=== PATIENT | male | born 1950 | race Caucasian/White ===

== ENCOUNTER → 2018-12-11 11:44 | Outpatient (CLI) | payer MEDICARE | END | disposition home or self-care (01) | LOC: D.HCCARDIO 11:44 | PROVIDERS: ATTEND Internal Medicine Cardiovascular Disease | DX: I35.0 Nonrheumatic aortic (valve) stenosis (principal) ==

== ENCOUNTER 2019-02-07 08:26 | Inpatient (IN) | payer MEDICARE ==
[~2019-02-07] VITALS: Ht 167.6 cm; Wt 76.8 kg
--- NOTE | ~2019-02-07 | HEMODYNAMI ---
PATIENT:IDA LIZARRAGA MEDICAL RECORD: [id number] : 54 [id number] ADMISSION DATE: 02/10/19 Generatedon:02/10/201914:48 Patient name: IDA LIZARRAGA Patient #: [id number] SSN: : 1950 Date of study: 02/10/2019 Page: Of Hemodynamic Procedure Report Patient Data Patient Demographics Procedure consent was obtained First Name: IDA Gender: Male Last Name: ZIA : 1950 [facility] Initial: L Age: 68 year(s) Patient #: [id number] Race: Unknown SSN: [id number] Additional ID: [id number] Contact details Address: [address] [place] [address] State: [place] City: [place] Zip code: [address] Past Medical History Allergies: No known allergies Admission Admission Data Admission Date: 02/10/2019 Admission Time: 8:03 Admit Source: Other Insurance Payor: Private Room #: D.2129 health insurance [facility] #: [id number] Height (in.): 66 BSA: 1.84 (m2) Height (cm.): 167.64 BMI: 26.69 (kg/m2) Weight (lbs.): 165.35 Weight (kg.): 75 Lab Results Lab Result Date: 02/10/2019 Lab Result Time: 13:28 Biochemistry Name Units Result Min Max BUN mg/dl 28 --(----)-* 7 18 Creatinine mg/dl 0.9 --(-*--)-- 0.6 1.3 CBC Name Units Result Min Max Hematocrit % 47.9 --(-*--)-- 42 54 Hemoglobin g/dl 16.4 --(--*-)-- 13.5 17.5 Procedure Procedure Types Cath Procedure Diagnostic Procedure C LH w/Coronaries Sedation Charges Moderate Sedation up to 15 minutes Procedure Description Procedure Date Procedure Date: 02/10/2019 Procedure Start Time: 14:28 Procedure End Time: 14:46 Procedure Staff Name Function Malcom Graham MD Performing Physician Lul Khan RT Monitor Betito Rodriguez RT Scrub Delaney Cadet RT Scrub Shaun Joyner RN Nurse Indication Shortness of breath Procedure Data Cath Procedure Fluoroscopy Diagnostic fluoroscopy Total fluoroscopy Time: 2.7 time: 2.7 min min Diagnostic fluoroscopy Total fluoroscopy dose: 463 dose: 463 mGy mGy Contrast Material Contrast Material Type Amount (ml) Isovue 300 84 Entry Location Entry Primary Successful Side Size Upsize Upsize Entry Closure Succes sful Closure Location (Fr) 1 (Fr) 2 (Fr) Remarks Device Remarks Femoral Right 5 Fr Exoseal artery Estimated blood loss: 5 ml Diagnostic catheters Device Type Used For End Catheter Placement MULTIPACK JL 4.0 5Fr Procedure catheter MULTIPACK 3DRC 5Fr Procedure catheter MULTIPACK Pigtail 5 Fr Procedure catheter Procedure Complications No complications Procedure Medications Medication Administration Route Dosage 0.9% NaCl I.V. 100 ml/hr Oxygen etCO2 Nasal cannula 2 l/min Heparin Flush Bag added to field 2 bags (1000units/500ml NS) Lidocaine 2% added to field 20 Versed I.V. 1 mg Fentanyl I.V. 50 mcg Versed I.V. 1 mg Fentanyl I.V. 50 mcg Hemodynamics Rest BSA: 1.84 (m2) HGB: 16.4 (g/dl) O2 Consumption: Estimated: 206.67 (ml/min) O2 Co nsumption indexed: Estimated:112.32 (ml/min/m) Heart Rate: 59 (bpm) Snapshots Pre Cath Intra NCS Post Cath Vital Signs Time Heart Resp SPO2 etCO2 NIBP (mmHg) Rhythm Pain Sedation Rate (ipm) (%) (mmHg) Status Level (bpm) 14:20:07 58 12 99 26.9 148/72(113) NSR 0 (11) 10(A) , No pain 14:24:27 60 12 98 29.9 135/70(110) NSR 0 (11) 10(A) , No pain 14:28:47 56 11 98 30.6 135/66(105) NSR 0 (11) 10(A) , No pain 14:33:09 57 14 98 30.6 135/68(107) NSR 0 (11) 9(A) , No pain 14:37:27 56 15 98 32.9 142/76(115) NSR 0 (11) 9(A) , No pain 14:41:47 66 11 98 32.9 153/78(132) NSR 0 (11) 9(A) , No pain 14:46:09 60 9 98 32.9 135/63(107) NSR 0 (11) 9(A) , No pain Medications Time Medication Route Dose Verified Delivered Reason Notes Eff ectiveness by by 14:20:46 0.9% NaCl I.V. 100 Shaun Shaun Per ml/hr Ar Joyner physician RN RN 14:20:56 Oxygen etCO2 2 Shaun Shaun for low 02 Nasal l/min Lorigan Lorigan sats cannula RN RN 14:21:06 Heparin Flush added 2 Shaun Shaun used for Bag to bags Lorigan Lorigan procedure (1000units/500ml field RN RN NS) 14:21:16 Lidocaine 2% added 20ml Shaun Shaun for local to vial Lorigan Lorigan anesthetic field RN RN 14:29:32 Versed I.V. 1 mg Shaun Shaun for Lorigan Lorigan sedation RN RN 14:29:40 Fentanyl I.V. 50 Shaun Shaun for mcg Lorigan Lorigan sedation RN RN 14:31:58 Versed I.V. 1 mg Shaun Shaun for Lorigan Lorigan sedation RN RN 14:32:04 Fentanyl I.V. 50 Hsaun Shaun for mcg Lorigan Lorigan sedation RN foreign language instructor Log Time Note 13:51:43 Informed consent obtained and on chart 13:53:46 Admit Source: Other 13:53:54 Insurance Payor : Private health insurance 13:54:11 Patient Height : 66 inches 13:54:17 Patient Weight : 165.35 lbs 13:56:31 Lab Result : Hemoglobin 16.4 g/dl 13:56:31 Lab Result : Hematocrit 47.9 % 13:56:31 Lab Result : BUN 28 mg/dl 13:56:31 Lab Result : Creatinine 0.9 mg/dl 13:56:55 Indication : Shortness of breath 13:56:57 Diagnostic Cath Status : Elective 13:57:32 ACC Patient presents with No angina; no symptoms CCS Anginal Class 0--No symptoms, no angina. 13:58:29 ACCPatient has been prescribed/administered the following anti-anginal medication within the last 2 weeks: Long-Acting Nitrates, PILY-Inhibitor 13:58:33 Procedure Status Elective Heart Cath (OP). 13:58:36 Shaun Joyner RN sent for patient. Start room use. 13:58:37 Time tracking: Regular hours (M-F 7:00 - 5:00) 13:58:40 Plan of Care:Hemodynamics will remain stable., Cardiac rhythm will remain stable., Comfort level will be maintained., Respiratory function will remain adequate., Patient/ family verbilizes understanding of procedure., Procedure tolerated without complication., Recovers from procedure without complications.. 14:10:16 Patient received from Pre/Post Procedure Room to CCL 1 Alert and oriented. Tansferred to table in Supine position. 14:10:19 Warm blankets applied, and natalia hugger turned on for patient comfort. 14:10:19 Correct patient and procedure confirmed by team. 14:10:20 ECG and BP/O2 sat monitors applied to patient. 14:10:21 Pre-procedure instructions explained to patient. 14:10:21 Pre-op teaching completed and patient verbalized understanding. 14:11:09 Family in waiting room. 14:11:23 Patient NPO since Breakfast. 14:11:39 Patient allergic to No known allergies 14:11:41 Is the patient allergic to Iodine/contrast media? No. 14:11:42 Is patient on blood thinner?No 14:11:57 H&P Date Dictated: 02/10/2019 Within 30 days and on chart.. 14:18:50 Vital chart was started 14:18:51 Baseline sample Acquired. 14:18:54 Rhythm: sinus rhythm 14:19:05 Full Disclosure recording started 14:19:09 Patient diabetic? No. 14:19:12 Previous problem with sedation/anesthesia? No ? 14:19:14 Snore? Yes 14:19:15 Sleep apnea? No 14:19:16 Deviated septum? No 14:19:16 Opens mouth fully? Yes 14:19:17 Sticks out tongue? Yes 14:19:18 Airway obstruction? No ? 14:19:25 Dentures? No ? 14:19:43 Pre procedure: right dorsailis pedis pulse 2+ Normal; easily identifiable; not easily obliterated 14:19:45 Patient pain scale 0/10 ?. 14:19:51 IV patent on arrival in left forearm with 0.9% NaCl at [facility]. 14:19:53 Lab results completed and on chart. 14:19:55 Right groin area was prepped with chlora-prep and draped in sterile fashion 14:20:00 Alarms reviewed by R. N. 14:20:00 Sharps counted by scrub and verified by R.N. 14:20:22 Use device set Femoral Dx 14:20:24 ACIST Syringe (98654) opened to sterile field. 14:20:24 Bag Decanter (2002S) opened to sterile field. 14:20:26 Medline Cath Pack ([id number]) opened to sterile field. 14:20:27 ACIST Hand Control (14969) opened to sterile field. 14:20:28 ACIST Manifold (78931) opened to sterile field. 14:20:28 Tegaderm 4 x 4 (1626W) opened to sterile field. 14:20:29 EMERALD Guide Wire (502-270) opened to sterile field. 14:20:30 SHEATH 5FR Fitzwilliam (EGD003) opened to sterile field. 14:20:31 DIAGNOSTIC Multipack 5Fr catheter set (NC7728) opened to sterile field. 14:20:46 0.9% NaCl 100 ml/hr I.V. was administered by Shaun Joyner RN; Per physician; 14:20:56 Oxygen 2 l/min etCO2 Nasal cannula was administered by Shaun Joyner RN; for low 02 sats; 14:21:06 Heparin Flush Bag (1000units/500ml NS) 2 bags added to field was administered by Shaun Joyner RN; used for procedure; 14:21:16 Lidocaine 2% 20ml vial added to field was administered by Shaun Joyner RN; for local anesthetic; 14:22:09 Physician arrived 14:22:10 --------ALL STOP TIME OUT------ 14:22:10 Final Timeout: patient, procedure, and site verified with staff and physician. All members of the team are in agreement. 14:22:12 Right groin site verified by team. 14:22:16 Fire Safety Assessment: A--An alcohol-based skin anteseptic being used preoperatively., C--Open oxygen or nitrous oxide is being used., D--An ESU, laser, or fiber-optic light is being used. 14:22:19 Physical assessment completed. ASA score P 3 - A patient with severe systemic disease as per Malcom Graham MD. 14:23:04 1) 90+ Normal kidney functon but urine findings or structural abnormalities or genetic trait point to kidney disease. 14:23:08 Maximum allowable contrast dose (3.7 X eGFR X 0.75)250 ml. 14:23:11 Sedation plan: IV Moderate Sedation Medication:Versed, Fentanyl 14:27:53 Procedure started. 14:28:01 Local anesthetic to right femoral artery with Lidocaine 2% by Malcom Graham MD.INITIAL ACCESS ONLY 14:29:32 Versed 1 mg I.V. was administered by Shaun Joyner RN; for sedation; 14:29:40 Fentanyl 50 mcg I.V. was administered by Shaun Joyner RN; for sedation; 14:30:07 Zero performed for pressure channel P1 14:31:47 A 5 Fr sheath was inserted into the Right Femoral artery 14:31:58 Versed 1 mg I.V. was administered by Shaun Joyner RN; for sedation; 14:32:04 Fentanyl 50 mcg I.V. was administered by Shaun Joyner RN; for sedation; 14:33:30 A MULTIPACK JL 4.0 5Fr catheter was advanced over the wire and used for Procedure. 14:33:33 LCA angiography performed. 14:36:21 Catheter exchanged over wire. 14:36:25 A MULTIPACK 3DRC 5Fr catheter was advanced over the wire and used for Procedure. 14:36:33 RCA angiography performed. 14:38:56 Catheter exchanged over wire. 14:39:00 A MULTIPACK Pigtail 5 Fr catheter was advanced over the wire and used for Procedure. 14:39:50 ACCDominant side:Left 14:39:53 Aortic Root visualized 14:40:22 Catheter removed. 14:40:24 EXOSEAL 5Fr (EX500) opened to sterile field. 14:40:33 Sheath removed intact; hemostasis achieved with Exoseal to the Right Femoral artery. 14:40:34 Procedure ended.(Physican Out) 14:41:13 Fluoroscopy time 02.70 minutes. 14:41:42 Fluoroscopy dose: 463 mGy 14:41:42 Flurop Dose total: 463 14:43:50 Dose Area Product 79126 mGy/cm. 14:43:55 Contrast amount:Isovue 300 84ml. 14:44:37 Maximum allowable dose exceeded? No. 14:44:38 Sharps counted by scrub and verified by R.N. 14:44:41 Insertion/operative site no bleeding no hematoma. 14:44:53 Post right femoral artery:stable, soft, clean and dry 14:44:56 Post-op/insertion site Right Femoral artery dressed using a 4 x 4 and Tegaderm. 14:44:58 Post Procedure Pulses reassessed and unchanged 14:45:00 Post-procedure physical assessment completed. ASA score P 3 - A patient with severe systemic disease as per Malcom Graham MD. 14:45:09 Post procedure rhythm: unchanged. 14:45:36 Estimated blood loss: 5 ml 14:45:38 Post procedure instruction explained to patient.Patient verbalizes understanding. 14:45:38 Patient needs reinforcement of post procedure teaching. 14:46:21 Procedure type changed to Cath procedure, Diagnostic procedure, LHC, LHC w/Coronaries, Sedation Charges, Moderate Sedation up to 15 minutes 14:46:39 Procedure and supply charges have been captured, reviewed, submitted and are correct. 14:46:43 Procedure Complication : No complications 14:46:44 Vital chart was stopped 14:46:45 See physician's report for complete and final results. 14:46:47 Report given to PCU. 14:46:50 Patient transfered to PCU with Stretcher. 14:46:53 Procedure ended. 14:46:53 Full Disclosure recording stopped 14:46:57 End room use (Document Last) Device Usage Item Name Manufacture Quantity Catalog Hospital Part Current Minimal L ot# / Number Charge Number Stock Stock Serial# Code ACIST Acist 1 44357 819704 800612 010681 20 Syringe Medical (24301) Systems Inc Bag Microtek 1 840746 62125 923047 5 Decanter Medical Inc. () Medline Medline 1 [id number] 350029 89839 839567 5 Cath Pack ([id number]) ACIST Hand Acist 1 51940 649624 607109 589668 5 Control Medical (95190) Systems Inc ACIST Acist 1 28093 133000 676735 989808 5 Manifold Medical (48211) Systems Inc Tegaderm 4 3M 1 1626W 760825 984072 500767 5 x 4 (1626W) EMERALD Cardinal 1 371-470 282305 390567 407999 5 Guide Wire Health (502-479) SHEATH 5FR Terumo 1 CWY335 054372 322055 556385 5 Fitzwilliam (NCM411) DIAGNOSTIC Cardinal 1 NM4562 367991 23995 294151 30 Multipack Health 5Fr catheter set (JL0981) MULTIPACK Cardinal 1 577323 5 JL 4.0 5Fr Health catheter MULTIPACK Cardinal 1 614619 5 3DRC 5Fr Health catheter MULTIPACK Cardinal 1 824191 5 Pigtail 5 Health Fr catheter EXOSEAL 5Fr Cardinal 1 EX500 795369 512125 556175 10 (EX500) Health Signature Audit [place] Stage Time Signature Unsigned Intra-Procedure 02/10/2019 Lul Khan 2:48:02 PM RT(R) Signatures Performing Physician : Signature : Malcom Graham MD Date : Time : Monitor : Lul Khan RT Signature : Date : Time : Nurse : Shaun Joyner Signature : RN Date : Time : [facility] [address] [place], [place] [address]
[2019-02-10 08:30] VITALS: BP 163/66
[2019-02-10 09:09] LABS: BASOPHILS 0.4 % (0-2); EOSINOPHILS 4.8 % (0-7); HEMATOCRIT 47.9 % (42.0-54.0); HEMOGLOBIN 16.4 g/dL (13.5-17.5); IMMATURE GRANULOCYTES 0.6 % (0-5); LYMPHOCYTES 23.6 % (15-50); MCH 30.4 pg (26.0-34.0); MCHC 34.2 g/dL (31.0-37.0); MCV 88.9 fL (80.0-100.0); MEAN PLATELET VOLUME 10.2 fL (7.4-10.4); MONOCYTES 10.3 % (2-11); NEUTROPHILS 60.3 % (40-80); PLATELET COUNT 221 10x3/uL (130-400); RBC 5.39 10x6/uL (4.20-6.10); RDW 14.5 % (11.5-14.5); WBC 13.5 10x3/uL (4.8-10.8)
[2019-02-10 09:29] LABS: ALBUMIN 3.9 g/dL (3.4-5.0); ALKALINE PHOSPHATASE 73 U/L (46-116); ALT (SGPT) 18 U/L (10-68); BILIRUBIN - TOTAL 0.38 mg/dL (0.2-1.3); CALC OSMOLALITY 286 mosm/kg (275-300); CALCIUM 8.7 mg/dL (8.5-10.1); CARBON DIOXIDE 27.5 mmol/L (21.0-32.0); CHLORIDE - SERUM 106 mmol/L (98-107); CHOLESTEROL, TOTAL 187 mg/dL (0-200); CREATININE - SERUM 0.9 mg/dL (0.6-1.3); GLUCOSE 93 mg/dL (74-106); PHOSPHOROUS 3.2 mg/dL (2.5-4.9); POTASSIUM - SERUM 4.5 mmol/L (3.5-5.1); PROTEIN - SERUM 7.4 g/dL (6.4-8.2); SODIUM 141 mmol/L (136-145); T4 THYROXIN - FREE 0.87 ng/dL (0.76-1.46); THYROID STIMULATING HORMONE 2.95 uIU/mL (0.36-3.74); UREA NITROGEN 28 mg/dL (7-18); URIC ACID 6.6 mg/dL (2.6-7.2); eGFR NON AFRICAN AMERICAN 90 mL/min (90-120)
--- NOTE | 2019-02-10 09:30 | NUR ---
NEW ADMIT TO ROOM. PATIENT IS PLEASANT AND ORIENTED X 4. ACCOMPANIED BY SPOUSE. PATIENT APPEARS IN NO ACUTE DISTRESS. ADMISSION HISTORY, ASSESSMENT, EKG COMPLETED. IV 20 G TO LT WRIST SL WITH ONE ATTEMPT. PATIENT IS STABLE AND VSS. PATIENT TO HAVE LIGHT BREAKFAST AND HEART CATH THIS AFTERNOON. WILL CONTINUE WITH PLAN OF CARE.
[2019-02-10] MEDS ORDERED: LISINOPRIL40 MG PO (09:56)
[2019-02-10] MEDS ORDERED: ISOSORBIDE MONO30 M1 PO (09:56)
[2019-02-10] MEDS ORDERED: LOVASTATIN20 MG PO (09:57)
[2019-02-10 10:03] LABS: APTT 29.6 SECONDS (22.8-39.4)
[2019-02-10 10:10] LABS: INR 1.01 (0.85-1.17); PROTIME 13.2 SECONDS (11.6-15.0)
[2019-02-10 10:28] VITALS: BP 163/66; BMI 26.7
--- NOTE | 2019-02-10 12:17 | NUR ---
DR THOMPSON IN ROOM. PATIENT IS STABLE AND VSS. PATIENT REMAINS NPO AWAITNG HEART CATH. WILL CONTINUE TO MONITOR. SR UP X 2 BED IN LOW POSITION AND CALL LIGHT IN REACH.
[2019-02-10 12:32] VITALS: BP 143/52
--- NOTE | 2019-02-10 14:10 | NUR ---
PATIENT IS STABLE AND VSS. PATIENT PREOP PER PHONE CALL FROM SHORT FILLER BUNCH MACHINE OPERATOR TEAM. PATIENT TO SHORT FILLER BUNCH MACHINE OPERATOR VIA BED AND SHORT FILLER BUNCH MACHINE OPERATOR TEAM.
--- NOTE | 2019-02-10 15:15 | NUR ---
PATIENT RETURNED TO ROOM VIA CLINIC MANAGER TEAM AND HOSPITAL BED. PATIENT HAS EYES CLOSED AND BREATHING EVENLY. DRSG TO RT GROIN GROIN C/D/I . NO SIGNS OF BBLEEDING , BRUISING OR HEMATOMA NOTED. PATIENT IS STABLE AND VSS. PEDAL PULSES PALPABLE. VS SET UP FOR EVERY 15 MINUTES. WILL CONTINUE TO MONITOR. SR UP X 2 BED IN LOW POSITION AND CALL LIGHT IN REACH.
--- NOTE | 2019-02-10 15:30 | NUR ---
PATIENT IS STABLE AND VSS. RT GROIN DRSG C/D/I. NO HEMATOMA. PEDAL PULSES PALPABLE.
[2019-02-10 15:57] LABS: APPEARANCE CLEAR (CLEAR); BILIRUBIN NEGATIVE (NEGATIVE); COLOR YELLOW (YELLOW); GLUCOSE NEGATIVE (NEGATIVE); KETONE NEGATIVE (NEGATIVE); NITRITE NEGATIVE (NEGATIVE); PROTEIN NEGATIVE (NEGATIVE); UROBILINOGEN NORMAL (NORMAL)
--- NOTE | 2019-02-10 16:15 | NUR ---
PATIENT CONTINUES TO LAY FLAT WITH RT LEG STRAIGHT. PATIENT IS STABLE AND VSS. RT GROIN DRSG C/D/I NO HEMATOMA, BRUISNG OR BLEEDING NOTED. WILL CONTINUE TO MONITOR.
[2019-02-10 16:26] VITALS: BP 160/58
--- NOTE | 2019-02-10 17:18 | NUR ---
PATIENT LAYING DOWN AND EATING SUPPER. CAUTIONED PATIENT TO EAT SLOWLY, CHEW WELL AND EAT SMALL BITES. RT GROIN DRSG C/D/I. PATIENT IS STABLE AND VSS . WILL CONTINUE TO MONITOR. SR UP X 2 BED IN LOW POSITION AND CALL LIGHT IN REACH.
--- NOTE | 2019-02-10 18:00 | NUR ---
DR VANEGAS IN ROOM. RT GROIN DRSGT C/D/I. NO HEMATOMA, BRUISING OR BLEEDING NOTED. PATIENT IS STABLE AND VSS. WILL CONTINUE TO PHELPS HEALTHITOR.
--- NOTE | 2019-02-10 19:40 | NUR ---
REPORT CALLED TO CVICU, SPOKE WITH HIRAM. INFORMED RT AND MT THAT PT WILL BE TRANSFERRED.
--- NOTE | 2019-02-10 20:00 | NUR ---
68YO MALE RECEIVED TO ROOM CV03 VIA W/C; TRANSFERRED FROM 2128. PATIENT IS ALERT AND ORIENTED, COMMUNICATES NEEDS WELL. PATIENT TRANSFERRED TO BED WITH ASSIST AND WAS OFF BALANCE. FAMILY AT BEDSIDE AND ASSESSMENT COMPLETE.
[2019-02-10 20:08] VITALS: BP 144/59
--- NOTE | 2019-02-10 20:08 | NUR ---
PT ARRIVED TO CVICU VIA WHEELCHAIR WITH B2B SALES PROFESSIONAL AND FAMILY, AAOx4, ASSISTED PT TO BED, ICU MONITORS CONNECTED, UNIT AND ROOM ORRIENTATION COMPLETED, PT DENIES NEEDS AT THIS TIME VSS, SHIFT ASSESSMENT COMPLETED SEE FLOW SHEET, WILL CONTINUE TO MONITOR
--- NOTE | 2019-02-10 21:30 | NUR ---
CALL LIGHT ACTIVATED, PT C/O NAUSEATED AND STATED HE FEELS LIKE HE IS NEEDING TO VOMIT, BIPAP REMOVED IMEDIATLY, PT PLACED ON HIGH FLOW NC @7L/MIN, SPO2% DECREASED ON NC TO 89%, PLACED NRB @15L/MIN SPO2% IMPROVED, ZOFRAN GIVEN SEE MAR, NO VOMIT NOTED AT THIS TIME, RN AT BEDSIDE, CONTINUE TO MONITOR
[2019-02-10 23:00] VITALS: BP 123/57
[2019-02-11] VITALS (42 sets, daily range): BP systolic 95–207; BP diastolic 44–96; Ht 167.6 cm; Wt 76.8 kg
--- NOTE | 2019-02-11 05:15 | NUR ---
PATIENT SHAVED PER ORDER FROM ANTERIOR SURFACE FLANK TO FLANK.
--- NOTE | 2019-02-11 06:24 | NUR ---
PT TRANSPORTED TO [facility] X2RN AND
--- NOTE | 2019-02-11 06:46 | NUR ---
CALLED CVICU, RECEIVED ORDERS FOR PRE-OP
--- NOTE | 2019-02-11 07:14 | NUR ---
REPORT RECEIVED FROM OFF GOING NURSE. PATIENT IN THE OR.
[2019-02-11 11:59] LABS: INR 1.53 (0.85-1.17); PROTIME 17.8 SECONDS (11.6-15.0)
--- NOTE | 2019-02-11 12:30 | NUR ---
PT ARRIVED TO ROOM VIA BED FROM O.R. PLACED ON BEDSIDE MONITORING. VENTILATOR. MIDLINE INCISION. CHEST TUBE X2, TPM WIRES X2. ALMAZAN. RIGHT LEG HARVEST. RIJ SWAN. 8.0 ETT.
--- NOTE | 2019-02-11 14:30 | NUR ---
DR VANEGAS HAS BEEN BY. ASKED HOW PT TOLERATED AFTER STARTING DIPRIVAN. LET HIM KNOW PT RESPONDED TO NITRO/CLEVIPREX AND DIPRIVAN WELL. HAD NOT GIVEN METOPROLOL. ASKED TO HOLD OFF GIVING FOR NOW, MAY NOT NEED.
[2019-02-11 15:43] LABS: INR 1.24 (0.85-1.17)
--- NOTE | 2019-02-11 16:14 | NUR ---
PT SEDATION OFF. OPENS EYES, WILL NOT KEEP OPEN. AGITATED, PULLING AT RESTRAINTS. TRIES TO COME UP OUT OF BED. FAMILY TALKING TO HIM HELPS.
--- NOTE | 2019-02-11 17:04 | NUR ---
PT EXTUBATED AT 1657. PLACED ON 4L NC. COOPERATIVE AND CALM.
--- NOTE | 2019-02-11 19:07 | NUR ---
REPORT RECEIVED, SHIFT ASSESSMENT COMPLETED PER FLOW SHEET. RT IJ CVL PATENT, DRESSING C/D/I. SUBSTERNAL CT X2 TO 20 CM SUCTION, NO AIR LEAK. CVP AND ARPITA LEVELED AND ZEROED WITH GOOD WAVEFORM. PULLING 500-750 ON IS, COUGH NON-PRODUCTIVE. SEE FLOW SHEET FOR COMPLETE ASSESSMENT. WILL CONTINUE TO MONITOR.
--- NOTE | 2019-02-11 21:22 | NUR ---
SCHEDULED MEDS GIVEN, SEE EMAR FOR DETAILS. WATER PROVIDED, TOLERATED WELL. FAMILY AT BEDSIDE, UPDATE GIVEN. WILL CONTINUE TO MONITOR.
--- NOTE | 2019-02-11 23:00 | NUR ---
REASSESSMENT COMPLETED PER FLOW SHEET, SEE FOR DETAILS. NO ACUTE DISTRESS NOTED. WATER PROVIDED PER PATIENT'S REQUEST. DENIES OTHER NEEDS. WILL CONTINUE TO MONITOR.
[2019-02-12] VITALS (47 sets, daily range): BP systolic 115–158; BP diastolic 25–77
--- NOTE | 2019-02-12 01:00 | NUR ---
RESTING, DENIES NEEDS, WILL CONTINUE TO MONITOR.
--- NOTE | 2019-02-12 03:00 | NUR ---
REASSESSMENT COMPLETED PER FLOW SHEET, SEE FOR DETAILS. NO ACUTE CHANGES NOTED. WATER PROVIDED, DENIES OTHER NEEDS. WILL CONTINUE TO MONITOR.
--- NOTE | 2019-02-12 05:00 | NUR ---
COMPLETE BED BATH GIVEN. COMPLETE BED LINEN CHANGE PROVIDED. RT LEG COBAN DRESSING REMOVED, X4 INCISION SITES NOTED, SHADY INTACT, NO DRAINAGE, DRESSING CHANGED PER DOCTOR'S ORDERS. TOLERATED ALL WELL.
--- NOTE | 2019-02-12 06:20 | NUR ---
ASSISSTED OOB TO CHAIR X2 RN ASSISST. TOLERATED WELL. WILL CONTINUE TO MONITOR.
[2019-02-12 06:37] LABS: MCH 29.5 pg (26.0-34.0); MCHC 33.4 g/dL (31.0-37.0); MCV 88.2 fL (80.0-100.0); MEAN PLATELET VOLUME 10.2 fL (7.4-10.4); RDW 14.6 % (11.5-14.5); WBC 16.7 10x3/uL (4.8-10.8)
[2019-02-12 06:53] LABS: HEMATOCRIT 34.4 % (42.0-54.0); HEMOGLOBIN 11.5 g/dL (13.5-17.5); RBC 3.9 10x6/uL (4.20-6.10)
[2019-02-12 07:02] LABS: ALKALINE PHOSPHATASE 45 U/L (46-116); ALT (SGPT) 17 U/L (10-68); CALC OSMOLALITY 280 mosm/kg (275-300); CALCIUM 7.4 mg/dL (8.5-10.1); CARBON DIOXIDE 27.1 mmol/L (21.0-32.0); CHLORIDE - SERUM 103 mmol/L (98-107); CREATININE - SERUM 0.9 mg/dL (0.6-1.3); GLUCOSE 133 mg/dL (74-106); POTASSIUM - SERUM 4.1 mmol/L (3.5-5.1); PROTEIN - SERUM 5.6 g/dL (6.4-8.2); SODIUM 138 mmol/L (136-145); UREA NITROGEN 22 mg/dL (7-18); eGFR NON AFRICAN AMERICAN 90 mL/min (90-120)
--- NOTE | 2019-02-12 07:59 | NUR ---
PHARMACY KENNETH CALLED AND ASKED FOR ORDER TO BACK UP THE DIPRIVAN THAT WAS PULLED YESTERDAY. GINA ELLIOTT RN TOOK TELEPHONE ORDER FOR DIPRIVAN FROM DR VAENGAS, BUT NO ORDER ENTERED INTO SYSTEM.
--- NOTE | 2019-02-12 08:20 | NUR ---
DR VANEGAS BY TO SEE PATIENT. ORDER RECIEVED TO DC ALMAZAN AND [place]. STOP CARRIER FLUIDS.
--- NOTE | 2019-02-12 08:24 | OP ---
PATIENT NAME: IDA LIZARRAGA MEDICAL RECORD: [id number] :54 LOCATION[facility] D.CV03 ADMISSION DATE:02/10/19 SURGEON: OG VANEGAS MD DATE OF OPERATION: 02/11/2019 SURGEON: Og Vanegas MD GOLF COACH: Adiel De Santiago MD PROCEDURES PERFORMED: 1. Aortic valve replacement (21-mm pericardial bioprosthesis). 2. Coronary artery bypass graft times 1 (reverse saphenous vein graft from aorta to posterior descending artery). PREOPERATIVE DIAGNOSES: Aortic stenosis and coronary artery disease. POSTOPERATIVE DIAGNOSES: Aortic stenosis and coronary artery disease. ANESTHESIA: General endotracheal anesthesia. ESTIMATED BLOOD LOSS: Total cardiopulmonary bypass with Cell Saver retransfusion. COMPLICATIONS: None. SPECIMENS: Aortic valve leaflets. CONDITION: Stable. DISPOSITION: CV ICU. OPERATIVE FINDINGS: 1. Calcified aortic valve leaflets seen on transesophageal echocardiography with 1+ MR prior to cardiopulmonary bypass, decreased to trace after aortic valve replacement. No perivalvular aortic valve prosthetic leak after replacement. 2. One 0.5-mm severely diseased posterior descending artery. The right coronary was calcified throughout. Open bridging incisions, right lower extremity. 3. Significant calcification in the ascending aorta anterolaterally including at the site of the aortotomy. OPERATIVE INDICATIONS: Aortic stenosis, coronary artery disease. OPERATIVE SUMMARY IN DETAIL: The patient was brought to the operating suite. General anesthesia was obtained. The patient was prepped and draped. Open bridging incision was used to remove the greater saphenous vein to the right lower extremity. Side branches were divided with clips. Vessel was ligated proximally and distally and removed. Side branches were tied and thin sites were oversewn. Leg was irrigated and closed in 2 layers with clips. Median sternotomy incision was made. Subcutaneous tissue was divided by electrocautery. Sternum was divided with a saw. Pericardium was opened. Heparin was given. Aorta was cannulated. Dual stage venous cannula was inserted. After activated clotting time was appropriately elevated, the patient OPERATIVE REPORT [id number] IDA LIZARRAGA was placed in cardiopulmonary bypass. Sites for distal anastomoses were selected. Retrograde cardioplegia cannula was inserted. Antegrade cardioplegia cannula was inserted. The patient was cooled. Cross-clamp was placed. Cardioplegia was given antegrade and retrograde. This was repeated at 20-minute intervals during the cross-clamp time including down the completed vein graft. Left ventricular vent was placed. Distal anastomosis was performed in standard technique. Aortotomy was performed. Aortic valve leaflets were removed. Careful debridement of the aortic annulus was performed. Thorough irrigation was undertaken, protecting the left main, and then the valve was sized to 21 mm. The sutures were pledgeted sutures, placed from ventricular to aortic side through the valve sewing ring. The valve was carefully lowered in place and sutures were tied. I inspected the valve. There was no subvalvular obstruction and the valve was well seated. The aortotomy was closed. The patient was rewarmed. The aortic root cannula site was used with a 4.0-mm punch for proximal anastomosis. With the patient in steep Trendelenburg position, left ventricular apex was de-aired. The cross-clamp was removed. The aortic root was de-aired. Proximal anastomosis was tied down. Vein graft was de-aired and flow was restored. Proximal and distal anastomotic sites were without bleeding. The patient was defibrillated and resumed a spontaneous rhythm. The aortic suture line was without bleeding. Left ventricular vent was removed. Retrograde cardioplegia cannula was removed. Atrioventricular pacing wires were placed. The patient was fully rewarmed, weaned from cardiopulmonary bypass, and was stable. The patient was decannulated. Cannula sites were oversewn. Protamine was given. Thorough irrigation was undertaken. Graft lay appropriately. Drains were placed in the mediastinum. Pericardial fat was loosely reapproximated. Sternum was closed with wires. Fascia was closed. Subcutaneous tissue was closed. Skin was closed. Dermabond was placed. Needle and sponge counts were reported as correct and the patient was taken to the ICU in stable condition. TRANSINT:[id number] Voice Confirmation ID: [id number] DOCUMENT ID: [id number] OG VANEGAS MD at 0824 CC: SONY PINO M.D. [id number] DICTATION DATE: 02/11/19 1346 CHILD LIFE THERAPIST: 02/11/19 1616 ADM IN [place] [id number] [place] [id number]
[2019-02-12 09:07] LABS: INR 1.29 (0.85-1.17); PROTIME 15.6 SECONDS (11.6-15.0)
--- NOTE | 2019-02-12 10:55 | NUR ---
ALMAZAN CATHETER AND ART LINE HAVE BEEN REMOVED. PT RESTING IN CHAIR AT BEDSIDE AT THIS TIME. FEET ELEVATED.
--- NOTE | 2019-02-12 13:31 | NUR ---
PT ASSISTED FROM CHAIR TO BED FOR CHEST TUBE REMOVAL. PT GIVEN MORPHINE REQUESTED BY DR VANEGAS. CHEST TUBES REMOVED. SITES DRESSED PER ORDERS. PT NOW RESTING QUIETLY IN BED. FAMILY AT BEDSIDE. CALL LIGHT IN REACH. PT INSTRUCTED NOT TO GET OUT OF BED WITHOUT CALLING FOR NURSE. BED ALARM ON.
--- NOTE | 2019-02-12 14:47 | NUR ---
Nutrition Follow-up: POD1 CABG. Tolerating solids. Diet: Regular Wt: 177# Last BM: 02/09 Labs reviewed Meds reviewed Rec cardiac diet. [place] food preferences. RD following.
--- NOTE | 2019-02-12 16:50 | NUR ---
DINNER TRAY PROVIDED. PT DENIES ANY ADDITIONAL NEEDS. FAMILY AT BEDSIDE.
--- NOTE | 2019-02-12 19:08 | NUR ---
REPORT RECEIVED, SHIFT ASSESSMENT COMPLETED PER FLOW SHEET. AAOX4. PPP. RT IJ CVL PATENT, DRESSING C/D/I. DENIES PAIN OR NEEDS. CALL LIGHT WITHIN REACH. WILL CONTINUE TO MONITOR.
--- NOTE | 2019-02-12 19:21 | NUR ---
CENTRAL LINE DRESSING CHANGE TO RIGHT JUGULAR PER PROTOCOL.
--- NOTE | 2019-02-12 20:39 | NUR ---
SCHEDULED MEDS GIVEN, WATER PROVIDED, NO DIFFICULTY SWALLOWING. CALL LIGHT WITHIN REACH. WILL CONTINUE TO MONITOR.
--- NOTE | 2019-02-12 22:01 | NUR ---
ASSISSTED OOB TO CHAIR PER PATIENT'S REQUEST. CALL LIGHT WITHIN REACH. PULLING 500 X10 ON IS. DENIES OTHER NEEDS. CALL LIGHT WITHIN REACH.
--- NOTE | 2019-02-12 23:14 | NUR ---
REASSESSMENT COMPLETED PER FLOW SHEET, SEE FOR DETAILS. NO ACUTE CHANGES NOTED. WILL CONTINUE TO MONITOR.
[2019-02-13] VITALS (24 sets, daily range): BP systolic 101–151; BP diastolic 40–103
--- NOTE | 2019-02-13 01:00 | NUR ---
ASSISSTED BACK IN BED PER PATIENT'S REQUEST. CALL LIGHT WITHIN REACH. DENIES OTHER NEEDS.
--- NOTE | 2019-02-13 03:01 | NUR ---
REASSESSMENT COMPLETED PER FLOW SHEET, SEE FOR DETAILS. NO ACUTE CHANGES NOTED. WILL CONTINUE TO MONITOR.
--- NOTE | 2019-02-13 05:00 | NUR ---
COMPLETE BED BATH GIVEN, COMPLETE BED LINEN CHANGE PROVIDED. RT LEG DRESSING CHANGED PER DOCTOR'S ORDERS. TOLERATED ALL WELL.
--- NOTE | 2019-02-13 06:00 | NUR ---
ASSISSTED OOB TO CHAIR, TOLERATED WELL. CALL LIGHT WITHIN REACH.
[2019-02-13 06:23] LABS: HEMATOCRIT 31.9 % (42.0-54.0); HEMOGLOBIN 10.7 g/dL (13.5-17.5); MCH 29.7 pg (26.0-34.0); MCHC 33.5 g/dL (31.0-37.0); MCV 88.6 fL (80.0-100.0); MEAN PLATELET VOLUME 10.2 fL (7.4-10.4); RBC 3.6 10x6/uL (4.20-6.10); RDW 14.2 % (11.5-14.5); WBC 16.9 10x3/uL (4.8-10.8)
[2019-02-13 06:33] LABS: ALKALINE PHOSPHATASE 51 U/L (46-116); ALT (SGPT) 15 U/L (10-68); BILIRUBIN - TOTAL 0.69 mg/dL (0.2-1.3); CALC OSMOLALITY 275 mosm/kg (275-300); CALCIUM 7.9 mg/dL (8.5-10.1); CARBON DIOXIDE 28.1 mmol/L (21.0-32.0); CHLORIDE - SERUM 101 mmol/L (98-107); CREATININE - SERUM 0.8 mg/dL (0.6-1.3); GLUCOSE 126 mg/dL (74-106); PROTEIN - SERUM 5.8 g/dL (6.4-8.2); SODIUM 136 mmol/L (136-145); UREA NITROGEN 17 mg/dL (7-18); eGFR NON AFRICAN AMERICAN > 90 mL/min (90-120)
--- NOTE | 2019-02-13 07:12 | NUR ---
SHIFT REPORT RECEIVED. PT SITTING UP IN CHAIR. VSS. RIGHT IJ WITH ZINACEF INFUSING AT 11.4ML/HR. MIDSTERNAL DRESSING C/D/I. SUBSTERNAL DRESSING C/D/I. TPM WIRES COILED AND SECURED. RIGHT LEG DRESSING C/D/I. COMPLETE ASSESSMENT CHARTED IN FLOWSHEET. ON VIA DC. WILL CONTINUE TO MONITOR.
--- NOTE | 2019-02-13 10:25 | NUR ---
AM MEDS GIVEN. PT RESTING COMFORTABLY IN CHAIR. DENIES PAIN AT THIS TIME. WILL CONTINUE TO MONITOR.
--- NOTE | 2019-02-13 11:35 | NUR ---
SUBSTERNAL DRESSING CHANGED PER ORDERS. BETADINE APPLIED TO PREVIOUS CT INSERTION SITES. TPM WIRES COILED AND SECURED. TAGEDERM APPLIED OVER AREA. PT RESTING COMFORTABLY IN CHAIR. PULLS 750 ON I.S. NO FURTHER NEEDS AT THIS TIME. WILL CONTINUE TO MONITOR.
--- NOTE | 2019-02-13 14:16 | NUR ---
PT RESTING IN CHAIR. HAVING DIFFICULTY GETTING COMFORTABLE. PAIN MEDS OFFERED. PT REFUSED PAIN MEDS AT THIS TIME. VSS. WILL CONTINUE TO MONITOR.
--- NOTE | 2019-02-13 18:00 | NUR ---
PT AMBULATED IN UNIT [address]. TOLERATED WELL. CURRENTLY RESTING COMFORTABLY IN BED. WILL CONTINUE TO MONITOR.
--- NOTE | 2019-02-13 19:30 | NUR ---
REPORT REC'D AND CARE ASSUMED, REC'D PT LYING IN BED WATCHING TV, ON ROOM AIR, O2 SAT 93%, PT AWAKE, ALERT, AND ORIENTED, BREATHING TX IN PROGRESS, MIDSTERNAL DRSG CDI, SUBSTERNAL DRSG TO PREVIOUS CT'S AND TEMP P/M WIRES COILED, DRSG CDI, ABD SOFT, BS ACTIVE, RIGHT LEG HARVEST SITES DRSG CDI, PPP, SCDS OFF AND TEDS IN PLACE, PT RESTLESS, DENIES PAIN OR NEEDS, BED IN LOW POSITION, CALL LIGHT IN REACH, VISIBLE TO NURSES STATION.
--- NOTE | 2019-02-13 21:10 | NUR ---
EVENING MEDS GIVEN PER D. HARRISON RN, PT REQUESTING PAIN PILL, PERCOCET 5MG PO PROVIDED, PT DENIES FURTHER NEEDS, WILL MONITOR FOR CHANGES.
--- NOTE | 2019-02-13 23:30 | NUR ---
PT RESTING ON LEFT SIDE, EYES CLOSED, RESP EVEN AND UNLABORED, BP STABLE, REASSESSMENT COMPLETED, WILL CONT CURRENT POC.
[2019-02-14] VITALS (24 sets, daily range): BP systolic 114–144; BP diastolic 36–71
--- NOTE | 2019-02-14 01:30 | NUR ---
NO CHANGES IN STATUS AT THIS TIME
--- NOTE | 2019-02-14 03:00 | NUR ---
PT SITTING UP IN BED WATCHING TV, REASSESSMENT COMPLETED, NO CHANGES FROM PREVIOUS ASSESSMENT, PT DENIES PAIN OR OTHER NEEDS.
--- NOTE | 2019-02-14 04:45 | NUR ---
RADIOLOGY AT BS FOR AM CXR, PT DENIES NEEDS.
--- NOTE | 2019-02-14 05:40 | NUR ---
PT FOUND UP IN RECLINER, URINAL EMPTIED OF 500CC TYLER COLORED URINE, PT DENIES PAIN OR NEEDS, CALL LIGHT AND BS TABLE WITHIN REACH.
[2019-02-14 06:12] LABS: HEMATOCRIT 30.9 % (42.0-54.0); HEMOGLOBIN 10.1 g/dL (13.5-17.5); MCHC 32.7 g/dL (31.0-37.0); MCV 88.8 fL (80.0-100.0); MEAN PLATELET VOLUME 10.5 fL (7.4-10.4); RBC 3.48 10x6/uL (4.20-6.10); RDW 14.4 % (11.5-14.5); WBC 14.3 10x3/uL (4.8-10.8)
[2019-02-14 06:32] LABS: ALBUMIN 2.7 g/dL (3.4-5.0); ALKALINE PHOSPHATASE 58 U/L (46-116); CALCIUM 8.2 mg/dL (8.5-10.1); CARBON DIOXIDE 28.3 mmol/L (21.0-32.0); CHLORIDE - SERUM 103 mmol/L (98-107); CREATININE - SERUM 0.7 mg/dL (0.6-1.3); GLUCOSE 101 mg/dL (74-106); POTASSIUM - SERUM 3.9 mmol/L (3.5-5.1); PROTEIN - SERUM 5.8 g/dL (6.4-8.2); SODIUM 139 mmol/L (136-145); eGFR NON AFRICAN AMERICAN > 90 mL/min (90-120)
[2019-02-14 06:33] LABS: ALT (SGPT) 19 U/L (10-68); CALC OSMOLALITY 280 mosm/kg (275-300); UREA NITROGEN 22 mg/dL (7-18)
--- NOTE | 2019-02-14 09:24 | NUR ---
DULCOLAX SUPP GIVEN FOR CONSTIPATION AT THIS TIME. PT SITTING UP IN CHAIR. AMBULATER WITH PHYSICAL THERAPY EARLIER IN THE MORNING, TOLERATED WELL.
--- NOTE | 2019-02-14 11:00 | NUR ---
CHG BATH GIVEN. COMPLETE BED LINEN CHANGE PROVIDED. ORAL CARE PRODUCTS PROVIDED. SUBSTERNAL DRESSING CHANGED PER ORDER. PREVIOUS CT SITES HEALING PROPERLY NO REDNESS NOTED. TPM WIRES COILED AND SECURED. BIO PATCH PLACED ON ROSIO TPM WIRES, 4X4'S AND TAGEDERM DRESSING APPLIED TO AREA. RLE INCISION SITES WITH SHADY, WELL APPROXIMATED. NO REDNESS OR SWELLING NOTED. 4X4'S APPLIED AND SECURED WITH PORIS TAPE. PT TOLERATED WELL. WILL CONTINUE TO MONITOR.
--- NOTE | 2019-02-14 13:00 | NUR ---
20 G PIV INSERTED ON LEFT FOREARM X 3 ATTEMPS. PIV SALINE LOCKED AT THIS TIME.
--- NOTE | 2019-02-14 15:15 | NUR ---
RIGHT IJ CVL REMOVED AT THIS TIME WITH CATHETER TIP INTACT. PT TOLERATED WELL. INSTRUCTED TO REMAIN IN BED FOR 30MINUTES. WILL CONTINUE TO MONITOR.
--- NOTE | 2019-02-14 19:00 | NUR ---
REPORT RECEIVED. RECEIVED PATIENT IN BED AWAKE AND ALERT. ORIENTEDX4. SPEECH CLEAR. MONITORS CONNECTED TO PATIENT WITH ALARMS SET. VSS. CALL LIGHT IN REACH AND ABLE TO UTILIZE TO MAKE NEEDS KNOWN.
--- NOTE | 2019-02-14 20:31 | MORECARE ---
CASE MANAGEMENT DISCHARGE SUMMARY PATIENT: IDA LIZARRAGA UNIT: [id number] ADM DATE: 02/10/19 AGE: 68 : 52 SEX: M ROOM/BED: D.03 AUTHOR: MY,DOC PHYSICIAN: REFERRING PHYSICIAN: CHARLI VANEGAS MD DATE OF SERVICE: 02/14/19 Discharge Plan Patient Name: IDA LIZARRAGA Facility: [facility]:[place] : 1950 Planned Disposition: Anticipated Discharge Date: Discharge Date: Expected LOS: Initial Reviewer: [email or web address] Initial Review Date: 02/12/2019 Generated: 02/14/19 9:30 pm Comments DCP- Discharge Planning Updated by [id number]: Felicity Pichardo on 02/14/19 7:[address] LATE ENTRY 02/12/19 Patient Name: IDA LIZARRAGA Admission Status: Elective Accout number: [id number] Admission Date: 02-10-2019 : 1950 Admission Diagnosis:NONRHEUMATIC AORTIC (VALVE) STENOSIS Attending: CHARLI VANEGAS Current LOS: 4 Anticipated DC Date: Planned Disposition: Primary Insurance: [employer] CHOICE PPO [facility] Discharge Planning Comments: CM met with patient at bedside after explaining CM role and obtaining verbal consent. Patient lives at home with his MIRELLA and plans to return there upon discharge. Patient feels this would be a safe discharge. CM discussed availability / needs of home health and medical equipment. Patient denies any discharge needs at this time. Patient states he will have his family drive him home upon discharge. CM will continue to follow and assist as needed with discharge planning / needs. Electroplater Automatic: Felicity Pichardo DCPIA - Discharge Planning Initial Assessment Updated by [email or web address]: Felicity Pichardo on 02/14/19 8:29 pm * Is the patient Alert and Oriented? Yes * How many steps to enter\exit or inside your home? * PCP [facility] * Pharmacy [facility] * Preadmission Environment Home with Family * ADLs Independent * Equipment None * List name and contact numbers for known caregivers / representatives who currently or will assist patient after discharge: MIRELLA LIZARRAGA - SPOUSE - [phone] * Verbal permission to speak to the caregivers and representatives has been obtained from the patient. Yes * Community resources currently utilized None * Additional services required to return to the preadmission environment? No * Can the patient safely return to the preadmission environment? Yes * Has this patient been hospitalized within the prior 30 days at any hospital? No Patient Name: IDA LIZARRAGA Page [id number] at 2031 All edits/amendments must be made on the electronic document DICTATION DATE: 02/14/192029 PRINT BUYER: DENYS 02/14/192029 RPT#: [id number] DC DATE: STATUS: ADM IN [facility] [address] [place] [address] END OF REPORT
[2019-02-15] VITALS (17 sets, daily range): BP systolic 102–153; BP diastolic 42–95
[2019-02-15 06:11] LABS: HEMATOCRIT 30.9 % (42.0-54.0); HEMOGLOBIN 10.3 g/dL (13.5-17.5); MCH 29.5 pg (26.0-34.0); MCHC 33.3 g/dL (31.0-37.0); MCV 88.5 fL (80.0-100.0); MEAN PLATELET VOLUME 10.2 fL (7.4-10.4); RBC 3.49 10x6/uL (4.20-6.10); RDW 14.4 % (11.5-14.5); WBC 12.6 10x3/uL (4.8-10.8)
[2019-02-15 06:33] LABS: ALBUMIN 2.6 g/dL (3.4-5.0); ALKALINE PHOSPHATASE 58 U/L (46-116); ALT (SGPT) 23 U/L (10-68); BILIRUBIN - TOTAL 0.63 mg/dL (0.2-1.3); CALC OSMOLALITY 277 mosm/kg (275-300); CALCIUM 8.3 mg/dL (8.5-10.1); CARBON DIOXIDE 26.8 mmol/L (21.0-32.0); CHLORIDE - SERUM 104 mmol/L (98-107); CREATININE - SERUM 0.7 mg/dL (0.6-1.3); GLUCOSE 100 mg/dL (74-106); POTASSIUM - SERUM 3.8 mmol/L (3.5-5.1); PROTEIN - SERUM 5.7 g/dL (6.4-8.2); SODIUM 137 mmol/L (136-145); UREA NITROGEN 24 mg/dL (7-18); eGFR NON AFRICAN AMERICAN > 90 mL/min (90-120)
--- NOTE | 2019-02-15 09:26 | OP ---
PATIENT NAME: IDA LIZARRAGA MEDICAL RECORD: [id number] :54 LOCATION:[place] D.CV03 ADMISSION DATE:02/10/19 SURGEON: CHARLI VANEGAS MD DATE OF OPERATION: 02/11/2019 SURVEYOR'S NOTE The litigation legal assistant for this case was Dr. Adiel De Santiago. He removed the greater saphenous vein with bridging incisions of the right lower extremity, ligated proximally and distally, irrigated the wound and closed the wound and prepared the vein for use by tying the side branches and oversewing thin sites on the vein. The use of an litigation legal assistant surgeon saved 30-45 minutes of general anesthetic time. TRANSINT:[id number] Voice Confirmation ID: [id number] DOCUMENT ID: [id number] CHARLI VANEGAS MD at 0926 CC: [id number] DICTATION DATE: 02/14/19 1148 INVENTORY CONTROL SUPERVISOR: 02/14/19 1218 ADM IN [place] [id number] [place] [address]
--- NOTE | 2019-02-15 12:31 | NUR ---
0700-RECIEVED AWAKE AND ALERT-UP IN CHAIR-SR ON MONITOR 0745-ASSISTED WITH BREAKFEST TRAY 0830-PHYSICAL THERAPY ASSISTED PT WITH AMBULATION-REQUIRED<5% ASSIST-SIGNED OFF TO NURSING/ OR INDEPENDENT AMBULATION-REMAINS ON TELEMETRY 0930-AMBULATING IN UNIT EASILY-STATES FURTHEST AMBULATED IN YEARS WITH OUT BEING WINDED
--- NOTE | 2019-02-15 13:37 | NUR ---
PT AMBULATING IN HALLWAY
--- NOTE | 2019-02-15 19:00 | NUR ---
REPORT RECEIVED. RECEIVED PATIENT UP IN BEDSIDE CHAIR. AWAKE AND ALERT. ORIENTED X 4. SPEECH CLEAR. SHIFT ASSESSMENT COMPLETED PER FLOW SHEET WITH NO ACUTE DISTRESS OBSERVED. VSS. ON TELEMETRY. DENIES ANY COMPLAINTS AT THIS TIME. CALL LIGHT IN REACH AND ABLE TO UTILIZE TO MAKE NEEDS KNOWN. PATIENT REPORTED HE HAD A BM TODAY.
--- NOTE | 2019-02-15 21:00 | NUR ---
AWAKE AND ALERT. VSS.
--- NOTE | 2019-02-15 23:00 | NUR ---
RESTING WITH EYES CLOSED, ROUSES EASILY. VSS
[2019-02-16] VITALS: BP 102/48
--- NOTE | 2019-02-16 01:00 | NUR ---
RESTING WITH EYES CLOSED, EASILY ROUSED AND ALERT. VSS
[2019-02-16 02:00] VITALS: BP 144/39
[2019-02-16 03:00] VITALS: BP 139/49
--- NOTE | 2019-02-16 03:00 | NUR ---
RESTING WITH EYES CLOSED, EASILY ROUSED AND ALERT. VSS
[2019-02-16 05:00] VITALS: BP 146/50
--- NOTE | 2019-02-16 05:00 | NUR ---
AWAKE AND ALERT. VSS. NO ACUTE DISTRESS OBSERVED. CALL LIGHT IN REACH
[2019-02-16 05:45] LABS: HEMATOCRIT 32.7 % (42.0-54.0); HEMOGLOBIN 11.1 g/dL (13.5-17.5); MCH 30.3 pg (26.0-34.0); MCHC 33.9 g/dL (31.0-37.0); MCV 89.3 fL (80.0-100.0); MEAN PLATELET VOLUME 9.5 fL (7.4-10.4); RBC 3.66 10x6/uL (4.20-6.10); RDW 14.1 % (11.5-14.5); WBC 12.6 10x3/uL (4.8-10.8)
[2019-02-16 06:00] VITALS: BP 119/60
[2019-02-16 06:03] LABS: ALBUMIN 2.9 g/dL (3.4-5.0); ALKALINE PHOSPHATASE 66 U/L (46-116); CALC OSMOLALITY 282 mosm/kg (275-300); CALCIUM 8.6 mg/dL (8.5-10.1); CARBON DIOXIDE 26.9 mmol/L (21.0-32.0); CHLORIDE - SERUM 105 mmol/L (98-107); GLUCOSE 101 mg/dL (74-106); POTASSIUM - SERUM 3.9 mmol/L (3.5-5.1); PROTEIN - SERUM 6.2 g/dL (6.4-8.2); SODIUM 139 mmol/L (136-145); UREA NITROGEN 26 mg/dL (7-18)
[2019-02-16 06:08] LABS: ALT (SGPT) 30 U/L (10-68); CREATININE - SERUM 0.9 mg/dL (0.6-1.3); eGFR NON AFRICAN AMERICAN 90 mL/min (90-120)
[2019-02-16 07:30] VITALS: BP 124/51
--- NOTE | 2019-02-16 09:21 | NUR ---
0730-REVIEWED PLAN OF CARE AND AGREE WITH CURRENT PLAN -N CHANGES AT THIS TIME
[2019-02-16] MEDS ORDERED: AMIODARONE HCL200 MG PO (09:33)
--- NOTE | 2019-02-16 09:33 | NUR ---
AMBULATING IN [facility]-DR VANEGAS AT BEDSIDE
[2019-02-16] MEDS ORDERED: LOPRESSOR25 MG PO (09:34)
[2019-02-16] MEDS ORDERED: PERCOCET 5-3251 TAB PO (09:34)
[2019-02-16] MEDS ORDERED: ASPIRIN EC81 M1 PO (09:34)
--- NOTE | 2019-02-16 12:12 | NUR ---
1000-PACER WIRES REMOVED BY DR VANEGAS-PT SUPINE IN BED-DIRECTED TO STAY IN BED [id number] IN HOSPITAL AND MONITORED X 2HRS-REASON EXPLAINED-DIRECTED BY DR VANEGAS TO SEEK DENTAL CARE AND REASON FOR SAME--PT APPEARED HESITANT--OBTAINED FORMS AND LOCATIONS FOR FINANCIALLY ASSISTED DENTAL EXTRACTION-TELEPHONE NUMBER AND LOCATION- 3411-DISCHARGE INSTRUCTIONS PROVIDED-INCISION TO CHEST CLEAN AND INTACT- 1200-L PERIPHERAL IV D/C'D TIP INTACT 1200-PT LEFT AMBULATING IN CARE OF -
--- NOTE | 2019-02-17 09:48 | MORECARE ---
CASE MANAGEMENT DISCHARGE SUMMARY PATIENT: IDA LIZARRAGA UNIT: [id number] ADM DATE: 02/10/19 AGE: 68 : 52 SEX: M ROOM/BED: D.03 AUTHOR: MY,DOC PHYSICIAN: REFERRING PHYSICIAN: CHARLI VANEGAS MD DATE OF SERVICE: 02/17/19 Discharge Plan Patient Name: IDA LIZARRAGA Facility: [facility]:[place] : 1950 Planned Disposition: Anticipated Discharge Date: Discharge Date: 02/16/2019 Expected LOS: Initial Reviewer: [email or web address] Initial Review Date: 02/12/2019 Generated: 02/17/19 10:48 am Comments DCP- Discharge Planning Updated by [id number]: Felicity Pichardo on 02/14/19 7:[address] LATE ENTRY 02/12/19 Patient Name: IDA LIZARRAGA Admission Status: Elective Accout number: [id number] Admission Date: 02-10-2019 : 1950 Admission Diagnosis:NONRHEUMATIC AORTIC (VALVE) STENOSIS Attending: CHARLI VANEGAS Current LOS: 4 Anticipated DC Date: Planned Disposition: Primary Insurance: [employer] CHOICE PPO [facility] Discharge Planning Comments: CM met with patient at bedside after explaining CM role and obtaining verbal consent. Patient lives at home with his MIRELLA and plans to return there upon discharge. Patient feels this would be a safe discharge. CM discussed availability / needs of home health and medical equipment. Patient denies any discharge needs at this time. Patient states he will have his family drive him home upon discharge. CM will continue to follow and assist as needed with discharge planning / needs. Hydroelectric Plant Maintainer: Felicity Pichardo DCPIA - Discharge Planning Initial Assessment Updated by [email or web address]: Felicity Pichardo on 02/14/19 8:29 pm * Is the patient Alert and Oriented? Yes * How many steps to enter\exit or inside your home? * PCP [facility] * Pharmacy [facility] * Preadmission Environment Home with Family * ADLs Independent * Equipment None * List name and contact numbers for known caregivers / representatives who currently or will assist patient after discharge: MIRELLA LIZARRAGA - SPOUSE - [phone] * Verbal permission to speak to the caregivers and representatives has been obtained from the patient. Yes * Community resources currently utilized None * Additional services required to return to the preadmission environment? No * Can the patient safely return to the preadmission environment? Yes * Has this patient been hospitalized within the prior 30 days at any hospital? No Last DP export: 02/14/19 7:31 pm Patient Name: IDA LIZARRAGA Page [id number] at 0948 All edits/amendments must be made on the electronic document DICTATION DATE: 02/17/19946 OUTBOUND SALES EXECUTIVE: DENYS 02/17/19946 RPT#: [id number] DC DATE:02/16/19 STATUS: DIS IN [facility] [address] [place] [address] END OF REPORT
--- NOTE | 2019-02-25 12:04 | TEE ---
PATIENT:IDA LIZARRAGA MEDICAL RECORD: [id number] LOCATION:[place] [address] AGE OF PATIENT: 68 ADMISSION DATE: 02/10/19 SEX: M REFERRING PHYSICIAN: INTERPRETING PHYSICIAN: JAYCE DURAN MD TRANSESOPHAGEAL ECHOCARDIOGRAM Date: 02/11/19 ALEX CHARGE Y INDICATIONS: AVR PREMEDICATIONS: PATIENT'S RESPONSE PROCEDURE DOPPLER MEASUREMENTS: LVIT LA 3.2 PA RA LVOT RVOT Asc. Ao AV Gradient Peak 198 AV Mean AV Area MV Gradient Peak MV Mean MV Area INTERPRETATION: Doppler: 2-D: COLOR FLOW DOPPLER NORMAL SALINE STUDY: MISCELLANOUS: DIAGNOSIS: PLAN: Commercial Installer:2 Dr. Graham Zipper Sewing Machine Operator: Moses DE DIOS COMMENTS: LVD: 3.7 LVS: 1.9 DATE OF SERVICE: 02/11/2019 PROCEDURE: Transesophageal echo evaluation of valvular structures during aortic valve replacement. FINDINGS: 1. Left ventricular chamber size is within normal limits. Left ventricular systolic function is normal. Overall ejection fraction estimated 60%. 2. Left atrium, right atrium and right ventricular chamber sizes are mildly TRANSESOPHAGEAL ECHOCARDIOGRAM REPORT [id number] IDA LIZARRAGA dilated. 3. Valvular structures have normal structure and motion. 4. Doppler interrogation reveals severe aortic stenosis; however, this is not a new finding. The patient is scheduled for aortic valve replacement. Elsewise Doppler interrogation reveals mild aortic insufficiency, mild mitral regurgitation, no other valvular insufficiency or stenosis. 5. No evidence of pericardial effusion or left ventricular thrombus. TRANSINT:[id number] Voice Confirmation ID: [id number] DOCUMENT ID: [id number] at 1204 CC: [id number] DICTATION DATE: 02/11/19 1447 SCREENER PERFUMER: 02/12/19 0137 DIS IN 02/16/19 [place] [id number] [place] [id number]
== END 2019-02-16 12:00 | disposition home or self-care (01) | DRG 218 ==
LOC: D.M2 02-10 08:03 → D.CVICU 02-10 08:03 → D.M2 02-10 08:44 → D.CVICU 02-10 19:47 → D.SDCHOLD 02-11 07:30 → D.CVICU 02-16 12:00
PROVIDERS: Internal Medicine Cardiovascular Disease; ADMIT Thoracic Surgery (Cardiothoracic Vascular Surgery); ATTEND Thoracic Surgery (Cardiothoracic Vascular Surgery)
PROC: B2111ZZ Fluoroscopy of Multiple Coronary Arteries using Low Osmolar Contrast (ICD-10-PCS; 2019-02-10)
PROC: 021009W Bypass Coronary Artery, One Artery from Aorta with Autologous Venous Tissue, Open Approach (ICD-10-PCS; 2019-02-11)
PROC: 06BP0ZZ Excision of Right Saphenous Vein, Open Approach (ICD-10-PCS; 2019-02-11)
PROC: B24BZZ4 Ultrasonography of Heart with Aorta, Transesophageal (ICD-10-PCS; 2019-02-11)
PROC: 5A1221Z Performance of Cardiac Output, Continuous (ICD-10-PCS; 2019-02-11)
PROC: 02RF0JZ Replacement of Aortic Valve with Synthetic Substitute, Open Approach (ICD-10-PCS; principal; 2019-02-11 07:30)
DX: I35.0 Nonrheumatic aortic (valve) stenosis (principal); J44.9 Chronic obstructive pulmonary disease, unspecified; F17.200 Nicotine dependence, unspecified, uncomplicated; R42 Dizziness and giddiness; R06.00 Dyspnea, unspecified; I10 Essential (primary) hypertension; E78.5 Hyperlipidemia, unspecified

== ENCOUNTER → 2019-03-12 13:39 | Outpatient (CLI) | payer MEDICARE ==
[2019-02-11 11:03] VITALS: BMI 26.6
[~2019-03-12 13:39] MED LIST: AMIODARONE HCL200 MG PO; ASPIRIN EC81 M1 PO; ISOSORBIDE MONO30 M1 PO; LISINOPRIL40 MG PO; LOPRESSOR25 MG PO; LOVASTATIN20 MG PO; PERCOCET 5-3251 TAB PO
[2019-03-12 14:12] LABS: HEMATOCRIT 42.4 % (42.0-54.0); HEMOGLOBIN 14.1 g/dL (13.5-17.5); MCH 29.6 pg (26.0-34.0); MCHC 33.3 g/dL (31.0-37.0); MCV 88.9 fL (80.0-100.0); RBC 4.77 10x6/uL (4.20-6.10); RDW 14.6 % (11.5-14.5); WBC 13.4 10x3/uL (4.8-10.8)
[2019-03-12 14:35] LABS: ALBUMIN 4.2 g/dL (3.4-5.0); ANION GAP 14.6 mmol/L (8-16); BILIRUBIN - TOTAL 0.33 mg/dL (0.2-1.3); CALCIUM 8.7 mg/dL (8.5-10.1); CARBON DIOXIDE 27.7 mmol/L (21.0-32.0); CREATININE - SERUM 1.2 mg/dL (0.6-1.3); POTASSIUM - SERUM 4.3 mmol/L (3.5-5.1)
== END | disposition home or self-care (01) ==
LOC: D.RAD 13:39
PROVIDERS: ATTEND Thoracic Surgery (Cardiothoracic Vascular Surgery)
DX: R51 Headache (principal); M79.606 Pain in leg, unspecified; R09.89 Other specified symptoms and signs involving the circulatory and respiratory systems; J90 Pleural effusion, not elsewhere classified; D64.9 Anemia, unspecified